=== PATIENT | female | born 1995 | race Caucasian/White ===

== ENCOUNTER 2018-01-26 09:22 | Inpatient (IN) | payer OTHER ==
[2018-01-26 09:55] LABS: ADD MAN DIFF? NO
[2018-01-26] MEDS: SOD CHLORIDE 0.9% 1,000 ML IV ×4 (09:56→19:05)
[2018-01-26] MEDS: KETOROLAC 30 MG INJ IV (09:57)
[2018-01-26 10:10] LABS: WHITE BLOOD COUNT 14.3 10^3/ul (4.8-10.8)
[2018-01-26 10:10] LABS: BASOPHIL # 0.1 10^3/ul (0.0-0.1); BASOPHILS % 0.4 % (0.0-2.0); HEMATOCRIT 30.6 % (37.0-47.0); HEMOGLOBIN 9.1 g/dl (12.0-16.0); LYMPHOCYTES # 0.8 10^3/ul (0.8-2.9); LYMPHOCYTES % 5.4 % (15.0-51.0); MEAN CORPUSCULAR HEMOGLOBIN 22.6 pg (29.0-33.0); MEAN CORPUSCULAR HGB CONC 29.7 g/dl (32.0-37.0); MEAN CORPUSCULAR VOLUME 76.1 fl (82.0-101.0); MEAN PLATELET VOLUME 11.1 fl (7.4-10.4); MONOCYTE # 1.1 10^3/ul (0.3-0.9); MONOCYTES % 7.6 % (0.0-11.0); NEUTROPHIL # 12.3 10^3/ul (1.6-7.5); NEUTROPHILS % 86.2 % (39.0-77.0); PLATELET COUNT 241 10^3/UL (140-415); RED BLOOD COUNT 4.02 10^6/ul (4.20-5.40); RED CELL DISTRIBUTION WIDTH 16.4 % (11.5-14.5)
[2018-01-26 10:28] LABS: ANION GAP 13 (5-13); BLOOD UREA NITROGEN 10 mg/dl (7-20); CALCIUM 8.7 mg/dl (8.4-10.2); CARBON DIOXIDE 24 mmol/L (21-31); CHLORIDE 101 mmol/L (97-110); Estimated GFR > 60 mL/min (>60); GLUCOSE 135 mg/dl (70-220); POTASSIUM 3.4 mmol/L (3.5-5.1); SODIUM 138 mmol/L (135-144)
[2018-01-26 10:31] LABS: INR 1.14; PROTIME 14.8 Sec (11.9-14.9); PT RATIO 1.2
[2018-01-26 10:32] LABS: PARTIAL THROMBOPLASTIN TIME 38.4 Sec (23.0-35.0)
[2018-01-26 10:39] LABS: TROPONIN-I < 0.012 ng/ml (0.000-0.120)
[2018-01-26] MEDS: SOD CHLORIDE 0.9% 100 ML (12:55)
[2018-01-26] MEDS: IOHEXOL 100 ML (12:56)
[2018-01-26 13:08] LABS: URINE BLOOD (Dip) POC 1+ (NEGATIVE); URINE GLUCOSE (Dip) POC Negative (NEGATIVE); URINE KETONES (Dip) POC 4+ (NEGATIVE); URINE LEUKOCYTE EST (Dip) POC 1+ (NEGATIVE); URINE NITRITE (Dip) POC Positive (NEGATIVE); URINE TOTAL PROTEIN POC 2+ (NEGATIVE)
[2018-01-26 13:08] LABS: URINE PH (Dip) POC 5.5 (5.0-8.5)
[2018-01-26] MEDS: CEFTRIAXONE 1 GM/50 ML (PMX) 50 ML IVPB (13:32)
[2018-01-26] MEDS: ACETAMINOPHEN 500 MG TAB PO (14:03)
[2018-01-26] MEDS ORDERED: ONDANSETRON 4 MG INJ (14:19)
[2018-01-26] MEDS: ONDANSETRON 4 MG INJ IV (14:22)
[2018-01-26] MEDS ORDERED: NACL 0.9% 3 ML SYG IV (17:30)
[2018-01-26] MEDS: SOD CHLORIDE 0.9% 500 ML IV (21:47)
[2018-01-26] MEDS: IBUPROFEN 600 MG TAB PO (21:59)
[2018-01-27 06:26] LABS: ADD MAN DIFF? NO
[2018-01-27 06:33] LABS: WHITE BLOOD COUNT 12.4 10^3/ul (4.8-10.8)
[2018-01-27 06:33] LABS: BASOPHIL # 0.1 10^3/ul (0.0-0.1); BASOPHILS % 0.5 % (0.0-2.0); EOSINOPHILS % 0.2 % (0.0-7.0); HEMATOCRIT 24.7 % (37.0-47.0); HEMOGLOBIN 7.4 g/dl (12.0-16.0); LYMPHOCYTES # 1.1 10^3/ul (0.8-2.9); LYMPHOCYTES % 8.9 % (15.0-51.0); MEAN CORPUSCULAR HEMOGLOBIN 23.2 pg (29.0-33.0); MEAN CORPUSCULAR VOLUME 77.4 fl (82.0-101.0); MEAN PLATELET VOLUME 11.9 fl (7.4-10.4); MONOCYTE # 1.1 10^3/ul (0.3-0.9); MONOCYTES % 8.6 % (0.0-11.0); NEUTROPHIL # 10.1 10^3/ul (1.6-7.5); NEUTROPHILS % 81.2 % (39.0-77.0); PLATELET COUNT 182 10^3/UL (140-415); RED BLOOD COUNT 3.19 10^6/ul (4.20-5.40); RED CELL DISTRIBUTION WIDTH 16.8 % (11.5-14.5)
[2018-01-27 06:54] LABS: ALANINE AMINOTRANSFERASE 27 IU/L (13-69); ALBUMIN 2.9 g/dl (3.3-4.9); ALKALINE PHOSPHATASE 84 IU/L (42-121); ANION GAP 9 (5-13); ASPARTATE AMINO TRANSFERASE 23 IU/L (15-46); BLOOD UREA NITROGEN 9 mg/dl (7-20); CALCIUM 8.1 mg/dl (8.4-10.2); CARBON DIOXIDE 21 mmol/L (21-31); CHLORIDE 113 mmol/L (97-110); CREATININE 0.57 mg/dl (0.44-1.00); Estimated GFR > 60 mL/min (>60); GLUCOSE 86 mg/dl (70-220); SODIUM 143 mmol/L (135-144); TOTAL PROTEIN 5.3 g/dl (6.1-8.1)
[2018-01-27] MEDS: IBUPROFEN 600 MG TAB PO ×2 (09:55→16:56)
[2018-01-27 10:13] LABS: HEMOGLOBIN A1C 5.7 % (0-5.9)
[2018-01-27 10:15] LABS: IRON < 10 ug/dl (35-150)
[2018-01-27 10:18] LABS: TOTAL IRON BINDING CAPACITY 262 ug/dl (241-421)
[2018-01-27] MEDS: CEFTRIAXONE 1 GM/50 ML (PMX) 50 ML IVPB (14:29)
[2018-01-27] MEDS: INFLUENZA VIRUS VACCINE 0.5 ML (DISPENSING) IM* (15:38)
[2018-01-27] MEDS: SOD FERRIC GLUC COMPLX 125 MG in SOD CHLORIDE 0.9% 100 ML IVPB (16:34)
[2018-01-27] MEDS: HYDROCODONE/APAP (5/325) TAB PO (18:17)
[2018-01-27] MEDS: TRIMETHOPRIM/SULFAMETHOX (DS) TAB PO (20:58)
[2018-01-28] MEDS: HYDROCODONE/APAP (5/325) TAB PO (06:14)
[2018-01-28 07:23] LABS: ADD MAN DIFF? NO
[2018-01-28 07:24] LABS: WHITE BLOOD COUNT 7.5 10^3/ul (4.8-10.8)
[2018-01-28 07:24] LABS: ABNORMAL IP MESSAGE 1; BASOPHILS % 0.4 % (0.0-2.0); EOSINOPHILS % 0.3 % (0.0-7.0); HEMATOCRIT 26.7 % (37.0-47.0); HEMOGLOBIN 7.9 g/dl (12.0-16.0); LYMPHOCYTES # 0.5 10^3/ul (0.8-2.9); LYMPHOCYTES % 6.2 % (15.0-51.0); MEAN CORPUSCULAR HEMOGLOBIN 22.8 pg (29.0-33.0); MEAN CORPUSCULAR HGB CONC 29.6 g/dl (32.0-37.0); MEAN CORPUSCULAR VOLUME 76.9 fl (82.0-101.0); MEAN PLATELET VOLUME 12.1 fl (7.4-10.4); MONOCYTE # 0.8 10^3/ul (0.3-0.9); MONOCYTES % 11.1 % (0.0-11.0); NEUTROPHIL # 6.1 10^3/ul (1.6-7.5); NEUTROPHILS % 81.5 % (39.0-77.0); PLATELET COUNT 202 10^3/UL (140-415); RED BLOOD COUNT 3.47 10^6/ul (4.20-5.40); RED CELL DISTRIBUTION WIDTH 17.1 % (11.5-14.5)
[2018-01-28 07:28] LABS: POSITIVE DIFF @See below
[2018-01-28 07:50] LABS: ALBUMIN 3.2 g/dl (3.3-4.9); ANION GAP 8 (5-13); BLOOD UREA NITROGEN 6 mg/dl (7-20); CALCIUM 8.4 mg/dl (8.4-10.2); CARBON DIOXIDE 20 mmol/L (21-31); CHLORIDE 110 mmol/L (97-110); CREATININE 0.53 mg/dl (0.44-1.00); GLUCOSE 88 mg/dl (70-220); MAGNESIUM 1.9 mg/dl (1.7-2.5); POTASSIUM 4.2 mmol/L (3.5-5.1); SODIUM 138 mmol/L (135-144)
[2018-01-28] MEDS: TRIMETHOPRIM/SULFAMETHOX (DS) TAB PO (08:48)
== END 2018-01-28 14:41 | disposition home or self-care (01) | DRG 872 ==
LOC: E/R 09:22 → PP2 16:45
DX: A41.9 Sepsis, unspecified organism (principal); N12 Tubulo-interstitial nephritis, not specified as acute or chronic; D50.9 Iron deficiency anemia, unspecified
CPT/HCPCS: 36415; 71045; 71275; 80048; 80053; 80069; 81003; 81025; 83036; 83540; 83735; 84484; 85025; 85378; 85610; 85730; 87086; 90686; 93005; 96361; 96365; 96375; 99285-25